=== PATIENT | female | born 1945 | race African-American/Black ===

== ENCOUNTER 2019-03-15 22:29 | Inpatient (IN) | payer MEDICARE, MEDICAID ==
[~2019-03-15] VITALS: Ht 165.1 cm; Wt 79.8 kg
[~2019-03-15 22:29] MED LIST: DONE10TA43 MT; LOVA40TA73 MT; METF-815 MT; METO25TA6 MT; QUET50TA21 MT
[2019-03-15] MEDS ORDERED: SODIUM CHLORIDE 0.9% 1,000 ML IV ONE (23:17)
[2019-03-16 00:33] LABS: BASOPHILS % 0.7 % (0.0-2.0); EOSINOPHILS % 2.1 % (0.0-5.0); HEMATOCRIT. 38.6 % (36.0-48.0); HEMOGLOBIN. 13.4 g/dL (12.0-16.0); LYMPHOCYTES % 20.2 % (20.0-50.0); MEAN CORPUSCULAR HEMOGLOBIN 26.4 pg (28.0-32.0); MEAN CORPUSCULAR VOLUME 76.3 fL (81.0-99.0); MEAN PLATELET VOLUME 9.1 fl (7.4-10.4); MONOCYTES % 7.7 % (2.0-8.0); NEUTROPHILS % 69.3 % (40.0-76.0); PLATELET 155 x1000/uL (130-400); RED BLOOD CELL COUNT 5.06 mill/uL (4.2-5.4); RED CELL DISTRIBUTION WIDTH 15.1 % (11.6-14.6)
[2019-03-16 00:47] LABS: CHLORIDE 107 mEq/L (98-107)
[2019-03-16 00:49] LABS: INR 1.1; PROTHROMBIN TIME 10.8 sec (9.6-11.0)
[2019-03-16 00:56] LABS: BETA HYDROXYBUTYRATE 0.6 mMol/L (0.0-0.3)
[2019-03-16] MEDS ORDERED: INSULIN REGULAR (HUMULIN R) 300UNITS/3ML SUBCUT NR (01:15)
[2019-03-16] MEDS ORDERED: ASPIRIN 325MG EC TABLET PO ONE (01:15)
[2019-03-16] MEDS ORDERED: HYDROCODONE/ACETAMINOPHEN 5/325MG TABLET PO PRN (09:30)
[2019-03-16] MEDS ORDERED: LORAZEPAM 0.5MG TABLET PO PRN (09:30)
[2019-03-16] MEDS ORDERED: MAGNESIUM/ALUMINUM HYDROXIDE/SIMETHICONE 30ML UDC PO PRN (09:30)
[2019-03-16] MEDS ORDERED: ONDANSETRON HCL 4MG/2ML INJ IV PRN (09:30)
[2019-03-16] MEDS ORDERED: CLONIDINE 0.1MG TABLET PO PRN (09:30)
[2019-03-16] MEDS ORDERED: DOCUSATE SODIUM 100MG CAPSULE PO PRN (09:30)
[2019-03-16] MEDS ORDERED: GUAIFENESIN 200MG/10ML SUGAR FREE UDC PO PRN (09:30)
[2019-03-16] MEDS: ENOXAPARIN 40MG/0.4ML SYR SUBCUT SCH (11:51)
[2019-03-16] MEDS ORDERED: DEXTROSE 50% WATER 50ML SYRINGE IV PRN (17:00)
[2019-03-16] MEDS: BLOOD SUGAR DIAGNOSTIC STRIP TEST SCH ×2 (17:05→20:01)
[2019-03-16] MEDS: INSULIN LISPRO (HIGH DOSE) 100 UNITS/ML SUBCUT SCH ×3 (17:06→20:33)
[2019-03-16 17:30] VITALS: BP 145/87
[2019-03-16 18:41] VITALS: BP 156/95
[2019-03-16 20:00] VITALS: BP 123/60
[2019-03-17] VITALS: BP 122/72
[2019-03-17] MEDS: ACETAMINOPHEN 325MG TABLET PO PRN (02:40)
[2019-03-17 04:00] VITALS: BP 119/56
[2019-03-17 06:16] LABS: BASOPHILS % 0.7 % (0.0-2.0); EOSINOPHILS % 3.6 % (0.0-5.0); HEMATOCRIT. 37.2 % (36.0-48.0); HEMOGLOBIN. 12.7 g/dL (12.0-16.0); LYMPHOCYTES % 32.5 % (20.0-50.0); MEAN CORPUSCULAR HEMOGLOBIN 26.2 pg (28.0-32.0); MEAN CORPUSCULAR VOLUME 76.5 fL (81.0-99.0); MEAN PLATELET VOLUME 9.3 fl (7.4-10.4); NEUTROPHILS % 54.2 % (40.0-76.0); PLATELET 131 x1000/uL (130-400); RED BLOOD CELL COUNT 4.86 mill/uL (4.2-5.4); RED CELL DISTRIBUTION WIDTH 15.4 % (11.6-14.6)
[2019-03-17 06:32] LABS: CHLORIDE 112 mEq/L (98-107)
[2019-03-17] MEDS: BLOOD SUGAR DIAGNOSTIC STRIP TEST SCH ×4 (06:35→21:00)
[2019-03-17] MEDS: INSULIN LISPRO (HIGH DOSE) 100 UNITS/ML SUBCUT SCH ×4 (06:40→21:00)
[2019-03-17 08:00] VITALS: BP 130/65
[2019-03-17] MEDS: ENOXAPARIN 40MG/0.4ML SYR SUBCUT SCH (09:28)
[2019-03-17] MEDS: AMLODIPINE 10MG TABLET PO SCH (09:28)
[2019-03-17] MEDS: ASPIRIN 81MG EC TABLET PO SCH (09:29)
[2019-03-17] MEDS ORDERED: POTASSIUM CHLORIDE 20MEQ TABLET SR PO NR (10:30)
[2019-03-17 12:00] VITALS: BP 104/53
[2019-03-17 16:00] VITALS: BP 137/78
[2019-03-17] MEDS: DONEPEZIL HCL 10MG TABLET PO SCH (17:43)
[2019-03-17] MEDS: METFORMIN HCL 500MG TABLET PO SCH (17:43)
[2019-03-17 20:00] VITALS: BP 118/64
[2019-03-17] MEDS: ATORVASTATIN CALCIUM 20MG TABLET PO SCH (20:37)
[2019-03-17] MEDS: QUETIAPINE FUMARATE 50MG TABLET PO SCH (20:37)
[2019-03-18] VITALS: BP 144/71
[2019-03-18 04:00] VITALS: BP 147/78
[2019-03-18 05:21] LABS: BASOPHILS % 1.1 % (0.0-2.0); EOSINOPHILS % 1.8 % (0.0-5.0); HEMATOCRIT. 42.5 % (36.0-48.0); HEMOGLOBIN. 14.6 g/dL (12.0-16.0); MEAN CORPUSCULAR HEMOGLOBIN 26.2 pg (28.0-32.0); MEAN CORPUSCULAR VOLUME 76.1 fL (81.0-99.0); MEAN PLATELET VOLUME 9.5 fl (7.4-10.4); MONOCYTES % 7.6 % (2.0-8.0); NEUTROPHILS % 72.5 % (40.0-76.0); PLATELET 80 x1000/uL (130-400); RED BLOOD CELL COUNT 5.59 mill/uL (4.2-5.4); RED CELL DISTRIBUTION WIDTH 15.2 % (11.6-14.6)
[2019-03-18 05:23] LABS: CHLORIDE 111 mEq/L (98-107)
[2019-03-18] MEDS: BLOOD SUGAR DIAGNOSTIC STRIP TEST SCH ×4 (07:30→20:46)
[2019-03-18] MEDS: INSULIN LISPRO (HIGH DOSE) 100 UNITS/ML SUBCUT SCH ×4 (07:30→20:46)
[2019-03-18 08:00] VITALS: BP 154/90
[2019-03-18] MEDS ORDERED: METF-815 MT (08:17)
[2019-03-18] MEDS ORDERED: DONE10TA43 MT (08:17)
[2019-03-18] MEDS ORDERED: QUET50TA21 MT (08:18)
[2019-03-18] MEDS ORDERED: METO25TA6 MT (08:18)
[2019-03-18] MEDS: ENOXAPARIN 40MG/0.4ML SYR SUBCUT SCH (09:00)
[2019-03-18] MEDS: METFORMIN HCL 500MG TABLET PO SCH ×2 (09:21→17:47)
[2019-03-18] MEDS: ACETAMINOPHEN 325MG TABLET PO PRN (09:21)
[2019-03-18] MEDS: ASPIRIN 81MG EC TABLET PO SCH (09:21)
[2019-03-18] MEDS: AMLODIPINE 10MG TABLET PO SCH (09:21)
[2019-03-18] MEDS: DONEPEZIL HCL 10MG TABLET PO SCH (09:23)
[2019-03-18 16:00] VITALS: BP 157/86
[2019-03-18 20:00] VITALS: BP 130/65
[2019-03-18] MEDS: QUETIAPINE FUMARATE 50MG TABLET PO SCH (20:45)
[2019-03-18] MEDS: ATORVASTATIN CALCIUM 20MG TABLET PO SCH (20:45)
[2019-03-19] VITALS: BP 134/77
[2019-03-19 01:16] VITALS: BP 130/67
[2019-03-19 04:00] VITALS: BP 134/80
[2019-03-19] MEDS: BLOOD SUGAR DIAGNOSTIC STRIP TEST SCH ×2 (06:21→12:55)
[2019-03-19] MEDS: INSULIN LISPRO (HIGH DOSE) 100 UNITS/ML SUBCUT SCH ×2 (06:21→12:57)
[2019-03-19 07:57] VITALS: BP 130/67
[2019-03-19] MEDS: ASPIRIN 81MG EC TABLET PO SCH (08:38)
[2019-03-19] MEDS: AMLODIPINE 10MG TABLET PO SCH (08:38)
[2019-03-19] MEDS: METFORMIN HCL 500MG TABLET PO SCH (08:38)
[2019-03-19] MEDS: DONEPEZIL HCL 10MG TABLET PO SCH (08:38)
== END 2019-03-19 16:25 | DRG 637 ==
LOC: ER 22:29 → 8WST 03-16 01:12 → ENRESERV 03-16 14:57
PROVIDERS: ADMIT Hospitalist; ATTEND Hospitalist
DX: E11.65 Type 2 diabetes mellitus with hyperglycemia (principal); G93.41 Metabolic encephalopathy; F41.1 Generalized anxiety disorder; F03.90 Unspecified dementia, unspecified severity, without behavioral disturbance, psychotic disturbance, mood disturbance, and anxiety; I10 Essential (primary) hypertension; E78.5 Hyperlipidemia, unspecified; Z79.899 Other long term (current) drug therapy; Z79.84 Long term (current) use of oral hypoglycemic drugs
CPT/HCPCS: 36415; 71045; 80053; 82010; 82962; 83036; 83735; 83880; 84484; 85025; 93005; 93970; 96360; 96372; 99285; J1650; J1815; J7030

== ENCOUNTER 2019-06-27 23:51 | Inpatient (IN) | payer MEDICARE, MEDICAID ==
[~2019-06-27] VITALS: Ht 317.5 cm; Wt 75.3 kg
[2019-06-28 00:37] LABS: BASOPHILS % 0.3 % (0.0-2.0); HEMATOCRIT. 42.3 % (36.0-48.0); HEMOGLOBIN. 14.7 g/dL (12.0-16.0); LYMPHOCYTES % 22.5 % (20.0-50.0); MEAN CORPUSCULAR HEMOGLOBIN 25.8 pg (28.0-32.0); MEAN CORPUSCULAR VOLUME 74.3 fL (81.0-99.0); MEAN PLATELET VOLUME 8.8 fl (7.4-10.4); MONOCYTES % 7.7 % (2.0-8.0); NEUTROPHILS % 69.5 % (40.0-76.0); PLATELET 146 x1000/uL (130-400); RED BLOOD CELL COUNT 5.68 mill/uL (4.2-5.4); RED CELL DISTRIBUTION WIDTH 16.2 % (11.6-14.6)
[2019-06-28 00:47] LABS: PROTHROMBIN TIME 10.4 sec (9.6-11.0)
[2019-06-28 00:59] LABS: CHLORIDE 106 mEq/L (98-107)
[2019-06-28 01:35] LABS: CLARITY URINE TURBID (CLEAR); COLOR URINE DARK YELLOW (YELLOW); KETONES URINE 1+ (NEGATIVE); LEUKOCYTE ESTERASE URINE 2+ (NEGATIVE); NITRITE URINE NEGATIVE (NEGATIVE); OCCULT BLOOD URINE 1+ (NEGATIVE); PROTEIN URINE 3+ (NEGATIVE); SPECIFIC GRAVITY URINE 1.033 (1.005-1.030)
[2019-06-28] MEDS ORDERED: CEFTRIAXONE 1 G PREMIX 50 ML IV ONE (02:00)
[2019-06-28] MEDS ORDERED: SODIUM CHLORIDE 0.9% 500 ML IV ONE (03:00)
[2019-06-28] MEDS ORDERED: SODIUM CHLORIDE 0.9% 1,000 ML IV ONE (03:00)
[2019-06-28] MEDS ORDERED: DEXT 5%/0.45% NACL 1000ML 1,000 ML IV SCH (07:52)
[2019-06-28] MEDS ORDERED: ONDANSETRON HCL 4MG/2ML INJ IV PRN ×2 (08:00→14:15)
[2019-06-28] MEDS ORDERED: MAGNESIUM/ALUMINUM HYDROXIDE/SIMETHICONE 30ML UDC PO PRN ×2 (08:00→14:15)
[2019-06-28] MEDS ORDERED: DOCUSATE SODIUM 100MG CAPSULE PO PRN ×2 (08:00→14:15)
[2019-06-28] MEDS ORDERED: LEVOFLOXACIN 500MG PREMIX 100 ML IV SCH ×3 (08:00→12:00)
[2019-06-28] MEDS ORDERED: ACETAMINOPHEN 325MG TABLET PO PRN (08:00)
[2019-06-28] MEDS ORDERED: CLONIDINE 0.1MG TABLET PO PRN (08:00)
[2019-06-28] MEDS ORDERED: ENOXAPARIN 40MG/0.4ML SYR SUBCUT SCH (08:00)
[2019-06-28 10:37] VITALS: BP 157/89
[2019-06-28 11:00] VITALS: BP 157/89
[2019-06-28 12:00] VITALS: BP 137/87
[2019-06-28] MEDS ORDERED: DEXTROSE 50% WATER 50ML SYRINGE IV PRN ×2 (12:30→14:15)
[2019-06-28] MEDS: DEXT 5%/0.45% NACL 1000ML 1,000 ML IV SCH ×2 (12:34→23:49)
[2019-06-28] MEDS: ENOXAPARIN 40MG/0.4ML SYR SUBCUT SCH (12:41)
[2019-06-28] MEDS: INSULIN LISPRO 100 UNITS/ML SUBCUT SCH ×3 (12:44→21:00)
[2019-06-28] MEDS: ACETAMINOPHEN 325MG TABLET PO PRN ×2 (14:11→15:56)
[2019-06-28 16:15] VITALS: BP 115/62
[2019-06-28] MEDS: BLOOD SUGAR DIAGNOSTIC STRIP TEST SCH ×2 (16:57→21:17)
[2019-06-28] MEDS ORDERED: INSULIN LISPRO 100 UNITS/ML SUBCUT SCH (17:15)
[2019-06-28 20:00] VITALS: BP 135/92
[2019-06-29] VITALS: BP 149/97
[2019-06-29 04:00] VITALS: BP 125/78
[2019-06-29] MEDS: BLOOD SUGAR DIAGNOSTIC STRIP TEST SCH ×4 (06:13→21:43)
[2019-06-29 08:00] VITALS: BP 139/83
[2019-06-29] MEDS: INSULIN LISPRO 100 UNITS/ML SUBCUT SCH ×4 (08:40→21:44)
[2019-06-29] MEDS: ENOXAPARIN 40MG/0.4ML SYR SUBCUT SCH (08:40)
[2019-06-29] MEDS: LEVOFLOXACIN 250MG PREMIX 50 ML IV SCH (10:08)
[2019-06-29] MEDS: ACETAMINOPHEN 325MG TABLET PO PRN ×2 (10:09→17:48)
[2019-06-29 12:00] VITALS: BP 133/87
[2019-06-29] MEDS: DEXT 5%/0.45% NACL 1000ML 1,000 ML IV SCH ×2 (12:37→23:29)
[2019-06-29] MEDS: CEFEPIME 2,000 MG in DEXT 5% WATER 100 ML IV SCH (14:24)
[2019-06-29 16:00] VITALS: BP 143/86
[2019-06-29 20:00] VITALS: BP 123/78
[2019-06-30] VITALS (7 sets, daily range): BP systolic 125–169; BP diastolic 71–98
[2019-06-30] MEDS: ACETAMINOPHEN 325MG TABLET PO PRN ×2 (04:13→14:34)
[2019-06-30] MEDS: BLOOD SUGAR DIAGNOSTIC STRIP TEST SCH ×4 (06:18→21:02)
[2019-06-30] MEDS: INSULIN LISPRO 100 UNITS/ML SUBCUT SCH ×4 (06:22→21:29)
[2019-06-30] MEDS: ENOXAPARIN 40MG/0.4ML SYR SUBCUT SCH (10:02)
[2019-06-30] MEDS: LEVOFLOXACIN 250MG PREMIX 50 ML IV SCH (10:02)
[2019-06-30] MEDS: CEFEPIME 2,000 MG in DEXT 5% WATER 100 ML IV SCH (14:20)
[2019-06-30] MEDS: DEXT 5%/0.45% NACL 1000ML 1,000 ML IV SCH (14:21)
[2019-06-30] MEDS: CLONIDINE 0.1MG TABLET PO PRN (21:28)
[2019-06-30] MEDS: CEFTRIAXONE 1 G PREMIX 50 ML IV SCH (21:29)
[2019-07-01] VITALS: BP 147/55
[2019-07-01] MEDS: ACETAMINOPHEN 325MG TABLET PO PRN ×3 (02:49→22:58)
[2019-07-01 04:00] VITALS: BP 139/74
[2019-07-01] MEDS: DEXT 5%/0.45% NACL 1000ML 1,000 ML IV SCH ×2 (04:40→20:59)
[2019-07-01] MEDS: BLOOD SUGAR DIAGNOSTIC STRIP TEST SCH ×4 (07:40→20:37)
[2019-07-01 08:00] VITALS: BP 125/79
[2019-07-01] MEDS: ENOXAPARIN 40MG/0.4ML SYR SUBCUT SCH (09:45)
[2019-07-01] MEDS: INSULIN LISPRO 100 UNITS/ML SUBCUT SCH ×4 (10:29→20:37)
[2019-07-01 12:00] VITALS: BP 120/64
[2019-07-01 16:00] VITALS: BP 152/89
[2019-07-01] MEDS ORDERED: AZITHROMYCIN 500 MG TABLET PO SCH (17:00)
[2019-07-01 20:00] VITALS: BP 172/85
[2019-07-01] MEDS: CEFTRIAXONE 1 G PREMIX 50 ML IV SCH (20:59)
[2019-07-01] MEDS: CLONIDINE 0.1MG TABLET PO PRN (22:58)
[2019-07-02] VITALS: BP 107/61
[2019-07-02 04:00] VITALS: BP 140/68
[2019-07-02] MEDS: DEXT 5%/0.45% NACL 1000ML 1,000 ML IV SCH ×2 (07:20→22:25)
[2019-07-02 08:00] VITALS: BP 133/76
[2019-07-02] MEDS: INSULIN LISPRO 100 UNITS/ML SUBCUT SCH ×4 (08:10→21:00)
[2019-07-02] MEDS: ENOXAPARIN 40MG/0.4ML SYR SUBCUT SCH (08:20)
[2019-07-02] MEDS: AZITHROMYCIN 250 MG TABLET PO SCH (08:21)
[2019-07-02] MEDS: BLOOD SUGAR DIAGNOSTIC STRIP TEST SCH ×4 (08:21→22:23)
[2019-07-02 12:00] VITALS: BP 130/74
[2019-07-02 16:00] VITALS: BP 129/69
[2019-07-02 20:00] VITALS: BP 152/68
[2019-07-02] MEDS: CEFTRIAXONE 1,000 MG in DEXTROSE 5% WATER 50 ML IV SCH (22:23)
[2019-07-03] VITALS: BP 139/76
[2019-07-03] MEDS: ACETAMINOPHEN 325MG TABLET PO PRN ×2 (01:33→21:18)
[2019-07-03 04:00] VITALS: BP 141/70
[2019-07-03] MEDS: BLOOD SUGAR DIAGNOSTIC STRIP TEST SCH ×4 (06:17→20:58)
[2019-07-03 08:00] VITALS: BP 138/75
[2019-07-03] MEDS: AZITHROMYCIN 250 MG TABLET PO SCH (09:27)
[2019-07-03] MEDS: ENOXAPARIN 40MG/0.4ML SYR SUBCUT SCH (09:27)
[2019-07-03] MEDS: INSULIN LISPRO 100 UNITS/ML SUBCUT SCH ×4 (09:29→21:00)
[2019-07-03 12:00] VITALS: BP 151/79
[2019-07-03] MEDS: DEXT 5%/0.45% NACL 1000ML 1,000 ML IV SCH ×2 (13:19→20:58)
[2019-07-03 16:00] VITALS: BP 154/74
[2019-07-03 20:00] VITALS: BP 129/63
[2019-07-03] MEDS: CEFTRIAXONE 1,000 MG in DEXTROSE 5% WATER 50 ML IV SCH (20:57)
[2019-07-04] VITALS: BP 151/76
[2019-07-04 00:05] VITALS: BP 131/76
[2019-07-04 04:00] VITALS: BP 130/50
[2019-07-04] MEDS: BLOOD SUGAR DIAGNOSTIC STRIP TEST SCH ×4 (06:13→21:00)
[2019-07-04] MEDS: INSULIN LISPRO 100 UNITS/ML SUBCUT SCH ×4 (07:51→21:00)
[2019-07-04 08:00] VITALS: BP 170/88
[2019-07-04] MEDS: AZITHROMYCIN 250 MG TABLET PO SCH (09:04)
[2019-07-04] MEDS: ENOXAPARIN 40MG/0.4ML SYR SUBCUT SCH (09:04)
[2019-07-04] MEDS: CLONIDINE 0.1MG TABLET PO PRN ×2 (09:05→18:58)
[2019-07-04 12:00] VITALS: BP 113/62
[2019-07-04] MEDS: DEXT 5%/0.45% NACL 1000ML 1,000 ML IV SCH (13:06)
[2019-07-04] MEDS: ZINC SULFATE 220 MG ( 50 ) CAPSULE PO SCH (13:06)
[2019-07-04 16:00] VITALS: BP 170/91
[2019-07-04] MEDS: CEFTRIAXONE 1,000 MG in DEXTROSE 5% WATER 50 ML IV SCH (21:01)
[2019-07-04] MEDS: ASCORBIC ACID 500 MG TABLET PO SCH (21:01)
[2019-07-05] VITALS: BP 147/70
[2019-07-05] MEDS: DEXT 5%/0.45% NACL 1000ML 1,000 ML IV SCH ×2 (02:54→15:20)
[2019-07-05 04:00] VITALS: BP 149/78
[2019-07-05] MEDS: BLOOD SUGAR DIAGNOSTIC STRIP TEST SCH ×4 (07:40→20:28)
[2019-07-05 08:00] VITALS: BP 144/66
[2019-07-05] MEDS: ENOXAPARIN 40MG/0.4ML SYR SUBCUT SCH (09:57)
[2019-07-05] MEDS: AZITHROMYCIN 250 MG TABLET PO SCH (09:57)
[2019-07-05] MEDS: ZINC SULFATE 220 MG ( 50 ) CAPSULE PO SCH (09:57)
[2019-07-05] MEDS: ASCORBIC ACID 500 MG TABLET PO SCH ×2 (09:57→21:26)
[2019-07-05] MEDS: INSULIN LISPRO 100 UNITS/ML SUBCUT SCH ×4 (09:59→21:28)
[2019-07-05 12:00] VITALS: BP 122/74
[2019-07-05 16:00] VITALS: BP 118/69
[2019-07-05 20:00] VITALS: BP 156/75
[2019-07-05] MEDS: CEFTRIAXONE 1,000 MG in DEXTROSE 5% WATER 50 ML IV SCH (21:26)
[2019-07-06 00:51] VITALS: BP 161/87
[2019-07-06] MEDS: DEXT 5%/0.45% NACL 1000ML 1,000 ML IV SCH ×2 (03:09→18:00)
[2019-07-06 04:30] VITALS: BP 150/71
[2019-07-06] MEDS: ACETAMINOPHEN 325MG TABLET PO PRN (05:08)
[2019-07-06] MEDS: BLOOD SUGAR DIAGNOSTIC STRIP TEST SCH ×4 (06:49→20:49)
[2019-07-06 08:00] VITALS: BP 133/67
[2019-07-06 08:28] LABS: BASOPHILS % 0.8 % (0.0-2.0); EOSINOPHILS % 0.8 % (0.0-5.0); HEMATOCRIT. 35.3 % (36.0-48.0); HEMOGLOBIN. 12.3 g/dL (12.0-16.0); LYMPHOCYTES % 10.7 % (20.0-50.0); MEAN CORPUSCULAR HEMOGLOBIN 25.8 pg (28.0-32.0); MEAN CORPUSCULAR VOLUME 73.8 fL (81.0-99.0); MEAN PLATELET VOLUME 8.1 fl (7.4-10.4); MONOCYTES % 12.3 % (2.0-8.0); NEUTROPHILS % 75.4 % (40.0-76.0); PLATELET 379 x1000/uL (130-400); RED BLOOD CELL COUNT 4.78 mill/uL (4.2-5.4); RED CELL DISTRIBUTION WIDTH 16.2 % (11.6-14.6)
[2019-07-06 08:38] LABS: CHLORIDE 109 mEq/L (98-107)
[2019-07-06] MEDS: ASCORBIC ACID 500 MG TABLET PO SCH ×2 (09:48→20:49)
[2019-07-06] MEDS: ENOXAPARIN 40MG/0.4ML SYR SUBCUT SCH (09:48)
[2019-07-06] MEDS: ZINC SULFATE 220 MG ( 50 ) CAPSULE PO SCH (09:48)
[2019-07-06] MEDS: POTASSIUM CHLORIDE 20MEQ TABLET SR PO SCH ×2 (09:50→18:30)
[2019-07-06] MEDS: INSULIN LISPRO 100 UNITS/ML SUBCUT SCH ×4 (09:50→21:00)
[2019-07-06] MEDS ORDERED: LORAZEPAM 2MG/ML CPJ IV PRN (11:30)
[2019-07-06] MEDS: RISPERIDONE 1MG TABLET PO SCH ×2 (11:44→18:30)
[2019-07-06 12:00] VITALS: BP 153/72
[2019-07-06 16:00] VITALS: BP 163/120
[2019-07-06 20:00] VITALS: BP 147/99
[2019-07-07] VITALS (7 sets, daily range): BP systolic 143–180; BP diastolic 81–99
[2019-07-07] MEDS: DEXT 5%/0.45% NACL 1000ML 1,000 ML IV SCH ×2 (05:21→20:40)
[2019-07-07] MEDS: BLOOD SUGAR DIAGNOSTIC STRIP TEST SCH ×4 (07:06→21:00)
[2019-07-07] MEDS: ASCORBIC ACID 500 MG TABLET PO SCH ×2 (08:46→23:33)
[2019-07-07] MEDS: ZINC SULFATE 220 MG ( 50 ) CAPSULE PO SCH (08:47)
[2019-07-07] MEDS: RISPERIDONE 1MG TABLET PO SCH ×2 (08:47→17:56)
[2019-07-07] MEDS: INSULIN LISPRO 100 UNITS/ML SUBCUT SCH ×4 (08:48→23:53)
[2019-07-07] MEDS: ENOXAPARIN 40MG/0.4ML SYR SUBCUT SCH (08:50)
[2019-07-07] MEDS: PIPERACILLIN/TAZOBACTAM 3.375 G in DEXT 5% WATER 100 ML IV SCH (23:59)
[2019-07-08] VITALS: BP 169/86
[2019-07-08 04:00] VITALS: BP 141/76
[2019-07-08] MEDS: BLOOD SUGAR DIAGNOSTIC STRIP TEST SCH ×4 (06:15→21:00)
[2019-07-08] MEDS: PIPERACILLIN/TAZOBACTAM 3.375 G in DEXT 5% WATER 100 ML IV SCH ×3 (06:15→18:03)
[2019-07-08 07:20] LABS: BASOPHILS % 0.5 % (0.0-2.0); HEMATOCRIT. 39.1 % (36.0-48.0); HEMOGLOBIN. 12.9 g/dL (12.0-16.0); LYMPHOCYTES % 9.9 % (20.0-50.0); MEAN CORPUSCULAR HEMOGLOBIN 24.9 pg (28.0-32.0); MEAN CORPUSCULAR VOLUME 75.3 fL (81.0-99.0); MEAN PLATELET VOLUME 8.2 fl (7.4-10.4); MONOCYTES % 12.1 % (2.0-8.0); NEUTROPHILS % 75.5 % (40.0-76.0); PLATELET 507 x1000/uL (130-400); RED BLOOD CELL COUNT 5.19 mill/uL (4.2-5.4); RED CELL DISTRIBUTION WIDTH 16.3 % (11.6-14.6)
[2019-07-08 07:33] LABS: CHLORIDE 111 mEq/L (98-107)
[2019-07-08 08:00] VITALS: BP 170/100
[2019-07-08] MEDS: ASCORBIC ACID 500 MG TABLET PO SCH ×2 (09:39→21:49)
[2019-07-08] MEDS: ZINC SULFATE 220 MG ( 50 ) CAPSULE PO SCH (09:39)
[2019-07-08] MEDS: ENOXAPARIN 40MG/0.4ML SYR SUBCUT SCH (09:39)
[2019-07-08] MEDS: RISPERIDONE 1MG TABLET PO SCH ×2 (09:41→18:03)
[2019-07-08] MEDS: INSULIN LISPRO 100 UNITS/ML SUBCUT SCH ×4 (09:42→21:51)
[2019-07-08] MEDS: DEXT 5%/0.45% NACL 1000ML 1,000 ML IV SCH (09:45)
[2019-07-08] MEDS: AMLODIPINE 10MG TABLET PO SCH (13:01)
[2019-07-08 16:00] VITALS: BP 180/100
[2019-07-08 20:00] VITALS: BP 184/104
[2019-07-08] MEDS: METOPROLOL TARTRATE 25MG TABLET PO SCH (21:50)
[2019-07-09] VITALS: BP 170/77
[2019-07-09] MEDS: PIPERACILLIN/TAZOBACTAM 3.375 G in DEXT 5% WATER 100 ML IV SCH ×4 (01:18→17:48)
[2019-07-09] MEDS: DEXT 5%/0.45% NACL 1000ML 1,000 ML IV SCH (01:19)
[2019-07-09 04:00] VITALS: BP 178/88
[2019-07-09] MEDS: BLOOD SUGAR DIAGNOSTIC STRIP TEST SCH ×4 (06:52→21:17)
[2019-07-09] MEDS: ASCORBIC ACID 500 MG TABLET PO SCH ×2 (08:39→21:22)
[2019-07-09] MEDS: ZINC SULFATE 220 MG ( 50 ) CAPSULE PO SCH (08:39)
[2019-07-09] MEDS: METOPROLOL TARTRATE 25MG TABLET PO SCH (08:40)
[2019-07-09] MEDS: AMLODIPINE 10MG TABLET PO SCH (08:40)
[2019-07-09] MEDS: ENOXAPARIN 40MG/0.4ML SYR SUBCUT SCH (08:40)
[2019-07-09] MEDS: RISPERIDONE 1MG TABLET PO SCH ×2 (08:41→17:48)
[2019-07-09] MEDS: INSULIN LISPRO 100 UNITS/ML SUBCUT SCH ×3 (08:42→21:23)
[2019-07-09 12:00] VITALS: BP 149/99
[2019-07-09 16:00] VITALS: BP 155/87
[2019-07-09 20:00] VITALS: BP 146/91
[2019-07-09] MEDS: METOPROLOL TARTRATE 50MG TABLET PO SCH (21:23)
[2019-07-10] VITALS: BP 154/91
[2019-07-10] MEDS: PIPERACILLIN/TAZOBACTAM 3.375 G in DEXT 5% WATER 100 ML IV SCH ×4 (00:32→17:43)
[2019-07-10 04:00] VITALS: BP 159/85
[2019-07-10] MEDS: BLOOD SUGAR DIAGNOSTIC STRIP TEST SCH ×4 (06:48→20:48)
[2019-07-10 08:00] VITALS: BP 148/91
[2019-07-10] MEDS: ASCORBIC ACID 500 MG TABLET PO SCH ×2 (09:54→20:55)
[2019-07-10] MEDS: ZINC SULFATE 220 MG ( 50 ) CAPSULE PO SCH (09:54)
[2019-07-10] MEDS: AMLODIPINE 10MG TABLET PO SCH (09:55)
[2019-07-10] MEDS: METOPROLOL TARTRATE 50MG TABLET PO SCH ×2 (09:55→20:55)
[2019-07-10] MEDS: RISPERIDONE 1MG TABLET PO SCH ×2 (09:57→17:42)
[2019-07-10] MEDS: ENOXAPARIN 40MG/0.4ML SYR SUBCUT SCH (09:57)
[2019-07-10] MEDS: INSULIN LISPRO 100 UNITS/ML SUBCUT SCH ×4 (10:16→20:55)
[2019-07-10 12:09] VITALS: BP 141/65
[2019-07-10] MEDS: LOSARTAN POTASSIUM 50 MG TABLET PO SCH (12:57)
[2019-07-10 16:57] VITALS: BP 167/85
[2019-07-10] MEDS ORDERED: POTASSIUM CHLORIDE 20MEQ TABLET SR PO NR (17:30)
[2019-07-10 20:00] VITALS: BP 150/87
[2019-07-11] VITALS: BP 154/91
[2019-07-11] MEDS: PIPERACILLIN/TAZOBACTAM 3.375 G in DEXT 5% WATER 100 ML IV SCH ×4 (00:16→17:44)
[2019-07-11 04:00] VITALS: BP 149/91
[2019-07-11] MEDS: BLOOD SUGAR DIAGNOSTIC STRIP TEST SCH ×4 (06:40→21:53)
[2019-07-11 08:00] VITALS: BP 163/86
[2019-07-11] MEDS: ENOXAPARIN 40MG/0.4ML SYR SUBCUT SCH (09:45)
[2019-07-11] MEDS: AMLODIPINE 10MG TABLET PO SCH (09:45)
[2019-07-11] MEDS: METOPROLOL TARTRATE 50MG TABLET PO SCH ×2 (09:46→21:54)
[2019-07-11] MEDS: LOSARTAN POTASSIUM 50 MG TABLET PO SCH (09:46)
[2019-07-11] MEDS: ZINC SULFATE 220 MG ( 50 ) CAPSULE PO SCH (09:46)
[2019-07-11] MEDS: RISPERIDONE 1MG TABLET PO SCH ×2 (09:48→17:44)
[2019-07-11] MEDS: INSULIN LISPRO 100 UNITS/ML SUBCUT SCH ×4 (09:50→21:00)
[2019-07-11] MEDS: ASCORBIC ACID 500 MG TABLET PO SCH ×2 (11:51→21:54)
[2019-07-11 12:37] VITALS: BP 130/78
[2019-07-11 16:25] VITALS: BP 137/86
[2019-07-11 20:00] VITALS: BP 156/83
[2019-07-12] VITALS: BP 145/98
[2019-07-12] MEDS: PIPERACILLIN/TAZOBACTAM 3.375 G in DEXT 5% WATER 100 ML IV SCH ×5 (00:58→23:35)
[2019-07-12 04:00] VITALS: BP 162/89
[2019-07-12] MEDS: CLONIDINE 0.1MG TABLET PO PRN (05:42)
[2019-07-12] MEDS: BLOOD SUGAR DIAGNOSTIC STRIP TEST SCH ×4 (06:54→21:24)
[2019-07-12 08:30] VITALS: BP 142/90
[2019-07-12] MEDS: ASCORBIC ACID 500 MG TABLET PO SCH ×2 (09:53→21:28)
[2019-07-12] MEDS: METOPROLOL TARTRATE 50MG TABLET PO SCH ×2 (09:53→21:28)
[2019-07-12] MEDS: LOSARTAN POTASSIUM 50 MG TABLET PO SCH (09:54)
[2019-07-12] MEDS: AMLODIPINE 10MG TABLET PO SCH (09:54)
[2019-07-12] MEDS: ZINC SULFATE 220 MG ( 50 ) CAPSULE PO SCH (09:55)
[2019-07-12] MEDS: RISPERIDONE 1MG TABLET PO SCH ×2 (09:57→16:05)
[2019-07-12] MEDS: INSULIN LISPRO 100 UNITS/ML SUBCUT SCH ×5 (09:58→21:30)
[2019-07-12] MEDS: ENOXAPARIN 40MG/0.4ML SYR SUBCUT SCH (09:58)
[2019-07-12 12:00] VITALS: BP 128/84
[2019-07-12 16:00] VITALS: BP 155/90
[2019-07-12 20:00] VITALS: BP 168/79
[2019-07-13] VITALS: BP 160/98
[2019-07-13 04:00] VITALS: BP 141/81
[2019-07-13] MEDS: PIPERACILLIN/TAZOBACTAM 3.375 G in DEXT 5% WATER 100 ML IV SCH ×3 (05:50→17:19)
[2019-07-13] MEDS: BLOOD SUGAR DIAGNOSTIC STRIP TEST SCH ×4 (06:30→21:49)
[2019-07-13 08:00] VITALS: BP 111/79
[2019-07-13] MEDS: ZINC SULFATE 220 MG ( 50 ) CAPSULE PO SCH (09:24)
[2019-07-13] MEDS: RISPERIDONE 1MG TABLET PO SCH ×2 (09:24→17:19)
[2019-07-13] MEDS: METOPROLOL TARTRATE 50MG TABLET PO SCH ×2 (09:24→21:47)
[2019-07-13] MEDS: LOSARTAN POTASSIUM 50 MG TABLET PO SCH (09:24)
[2019-07-13] MEDS: AMLODIPINE 10MG TABLET PO SCH (09:24)
[2019-07-13] MEDS: ASCORBIC ACID 500 MG TABLET PO SCH ×2 (09:25→21:47)
[2019-07-13] MEDS: ENOXAPARIN 40MG/0.4ML SYR SUBCUT SCH (09:25)
[2019-07-13] MEDS: INSULIN LISPRO 100 UNITS/ML SUBCUT SCH ×4 (09:48→21:48)
[2019-07-13 12:00] VITALS: BP 146/92
[2019-07-13 16:00] VITALS: BP 150/81
[2019-07-13 20:00] VITALS: BP 153/82
[2019-07-14] VITALS: BP 147/88
[2019-07-14] MEDS: INSULIN LISPRO 100 UNITS/ML SUBCUT SCH ×3 (07:15→21:00)
[2019-07-14] MEDS: BLOOD SUGAR DIAGNOSTIC STRIP TEST SCH ×4 (07:15→21:14)
[2019-07-14 08:00] VITALS: BP 136/68
[2019-07-14] MEDS: LOSARTAN POTASSIUM 50 MG TABLET PO SCH (08:59)
[2019-07-14] MEDS: ASCORBIC ACID 500 MG TABLET PO SCH ×2 (09:00→20:34)
[2019-07-14] MEDS: RISPERIDONE 1MG TABLET PO SCH ×2 (09:00→18:04)
[2019-07-14] MEDS: AMLODIPINE 10MG TABLET PO SCH (09:00)
[2019-07-14] MEDS: ZINC SULFATE 220 MG ( 50 ) CAPSULE PO SCH (09:00)
[2019-07-14] MEDS: METOPROLOL TARTRATE 50MG TABLET PO SCH ×2 (09:01→20:35)
[2019-07-14] MEDS: ENOXAPARIN 40MG/0.4ML SYR SUBCUT SCH (09:01)
[2019-07-14 12:07] VITALS: BP 137/69
[2019-07-14 16:14] VITALS: BP 125/68
[2019-07-14 18:58] VITALS: BP 135/70
[2019-07-14 20:46] VITALS: BP 153/84
== END 2019-07-14 21:25 | DRG 871 ==
LOC: ER 23:51 → 5WST 06-28 05:55 → EDBEDREQSVC 06-28 05:59 → EDBEDREQ 06-28 05:59 → EDBEDREQTM 06-28 05:59 → ENRESERV 06-28 07:34 → ER 06-28 09:51 → 7WST 06-30 15:25
PROVIDERS: ADMIT Hospitalist; ATTEND Hospitalist
DX: A41.89 Other specified sepsis (principal); U07.1 COVID-19; G93.41 Metabolic encephalopathy; J96.00 Acute respiratory failure, unspecified whether with hypoxia or hypercapnia; J12.89 Other viral pneumonia; N18.6 End stage renal disease; N39.0 Urinary tract infection, site not specified; D68.59 Other primary thrombophilia; I12.0 Hypertensive chronic kidney disease with stage 5 chronic kidney disease or end stage renal disease; J91.8 Pleural effusion in other conditions classified elsewhere; F99 Mental disorder, not otherwise specified; A41.51 Sepsis due to Escherichia coli [E. coli]; E11.22 Type 2 diabetes mellitus with diabetic chronic kidney disease; I25.10 Atherosclerotic heart disease of native coronary artery without angina pectoris; F03.90 Unspecified dementia, unspecified severity, without behavioral disturbance, psychotic disturbance, mood disturbance, and anxiety; F20.9 Schizophrenia, unspecified; F41.9 Anxiety disorder, unspecified; Z79.84 Long term (current) use of oral hypoglycemic drugs; Z79.899 Other long term (current) drug therapy; Z99.2 Dependence on renal dialysis
CPT/HCPCS: 36415; 71045; 80048; 80053; 81003; 82728; 82962; 83036; 83605; 83615; 83880; 84145; 84484; 85025; 85379; 86141; 87077; 87186; 87635; 93005; 93970; 99285; J0692; J0696; J1650; J1815; J1956; J2543; J7060; U0003